=== PATIENT | female | born 1955 | race Caucasian/White ===

== ENCOUNTER 2018-03-27 14:40 | Emergency (ER) | payer OTHER ==
[~2018-03-27] VITALS: Ht 157.5 cm; Wt 61.2 kg
[2018-03-27] MEDS ORDERED: SYNTHROID75 MCG PO (15:13)
== END 2018-03-27 16:22 | disposition home or self-care (01) ==
LOC: ER 14:40
DX: S60.042A Contusion of left ring finger without damage to nail, initial encounter (principal); W22.8XXA Striking against or struck by other objects, initial encounter; Y93.89 Activity, other specified; Y92.89 Other specified places as the place of occurrence of the external cause; Y99.8 Other external cause status

== ENCOUNTER 2021-12-10 13:33 | Outpatient (CLI) | payer OTHER ==
[~2021-12-10 13:33] MED LIST: SYNTHROID75 MCG PO
== END 2021-12-10 14:05 | disposition home or self-care (01) ==
LOC: ASH CLINIC 13:33
PROVIDERS: ATTEND Emergency Medicine
DX: U07.1 COVID-19 (principal); Z23 Encounter for immunization

== ENCOUNTER 2022-09-28 09:00 | Inpatient (IN) | payer OTHER ==
[~2022-09-28] VITALS: Ht 157.5 cm; Wt 65.8 kg
[2022-09-28] MEDS ORDERED: GABAPENTIN400 MG PO (10:27)
[2022-09-28] MEDS ORDERED: PROTONIX40 MG PO (10:27)
[2022-10-04] MEDS ORDERED: COLACE100 MG PO (11:27)
[2022-10-04] MEDS ORDERED: NEURONTIN800 MG PO (11:28)
[2022-10-04] MEDS ORDERED: AMOX-CLAV 875-1 EACH PO (11:28)
[2022-10-04] MEDS ORDERED: MEDROLPACK PO (11:28)
[2022-10-04] MEDS ORDERED: PERCOCET 5-3251 EACH PO (11:28)
== END 2022-10-06 07:35 | disposition home or self-care (01) | DRG 455 ==
LOC: O/R 10-04 08:20 → PED 10-04 08:20 → SURH 10-04 09:00 → PED 10-04 13:35 → SURH 10-04 23:00 → PED 10-06 07:35
PROVIDERS: ADMIT Orthopaedic Surgery Orthopaedic Surgery of the Spine; ATTEND Orthopaedic Surgery Orthopaedic Surgery of the Spine
PROC: 0SG3071 Fusion of Lumbosacral Joint with Autologous Tissue Substitute, Posterior Approach, Posterior Column, Open Approach (ICD-10-PCS; 2022-10-04)
PROC: 0ST40ZZ Resection of Lumbosacral Disc, Open Approach (ICD-10-PCS; 2022-10-04)
PROC: 0QB30ZZ Excision of Left Pelvic Bone, Open Approach (ICD-10-PCS; 2022-10-04)
PROC: 07DR0ZZ Extraction of Iliac Bone Marrow, Open Approach (ICD-10-PCS; 2022-10-04)
PROC: XRGD0R7 Fusion of Lumbosacral Joint using Custom-Made Anatomically Designed Interbody Fusion Device, Open Approach, New Technology Group 7 (ICD-10-PCS; principal; 2022-10-04 23:00)
DX: M48.07 Spinal stenosis, lumbosacral region (principal); M43.17 Spondylolisthesis, lumbosacral region; M54.17 Radiculopathy, lumbosacral region